=== PATIENT | female | born 1960 | race Two or more races ===

== ENCOUNTER 2023-10-29 15:55 | Emergency (ER) | payer BC, SELFPAY ==
--- NOTE | ~2023-10-29 | XR_ITS ---
XR lumbar spine 2-3V 10/29/2023 16:31 Indication: Low back pain for 3-4 days Procedure: 3 views lumbar spine Comparison: No prior studies for comparison. Findings: Vertebral body heights are maintained. No acute fracture or traumatic malalignment. There i s mild facet hypertrophy at L5-S1. There is mild disc narrowing at L5-S1. No evidence for spondylolis thesis. Pedicles intact. Sacral foramen are symmetric. Impression: 1: Mild lumbar spondylosis. Reviewed, dictated and finalized at location A. Impression: 1: Mild lumbar spondylosis.
--- NOTE | 2023-10-29 15:57 | ED.BACK ---
HPI - Back Pain/Injury General Chief Complaint: Back Pain/Injury Stated Complaint: Lower Back Pain Time Seen by Provider: 10/29/23 15:57 Source: patient Mode of arrival: ambulatory Limitations: no limitations History of Present Illness HPI Narrative: All is a 62-year-old female patient presenting to the clinic today with complaints of low back pain times 3-4 days. She reports no known injury. Denies any numbness or tingling going down her legs or any saddle anesthesia or loss of bowel or bladder. Thinks she may have strained her back and is having some spasms. Related Data Allergies Allergy/AdvReac Type Severity Reaction Status Date / Time No Known Allergies Allergy Verified 10/29/23 16:42 Review of Systems Review of Systems: Pertinent positives per HPI. Patient denies any fever, chills, rash, headache, visual changes, dizziness, cough, runny nose, sore throat, shortness of breath, chest pain, palpitations, nausea, vomiting, diarrhea, constipation, abdominal pain, or any urinary issues. PMFSH Comments At the time of my signature, I reviewed and agree with the nursing past medical, surgical, social, and family history. There is no relevant family history pertinent to the patient complaint. Exam Narrative: General: Well-developed, well nourished, in no apparent distress Head: Normocephalic, atraumatic. Cardio: Regular rate and rhythm, s1 and s2 normal, no murmur appreciated. Resp: Clear to auscultation bilaterally, no rhonchi, rales, wheezing or rubs. Musculoskeletal: No deformity,tender to palpation over the lumbar spine and paraspinous musculature, negative straight leg test, grossly normal range of motion, muscle strength strong and equal, peripheral pulse strong, no edema, no cyanosis, normal gait and station Course Course Emergency Course: Portions of this record may have been created with voice recognition software. Level of Care: Express Care Visit Vital Signs Vital signs: Vital signs reviewed MDM - Back Pain/Injury MDM Narrative Medical decision making narrative: At the time of visit patient is resting comfortably on the exam table. Patient appears to be nontoxic. Diagnostics: X-ray of the lumbar spine was negative for any sign of fracture or malalignment. Does show some mild spondylosis. Plan: I suspect patient has lumbar strain. Prescription for Flexeril and naproxen was sent to the pharmacy. Patient is requesting something for pain in the office today so Toradol 60 mg IM was given. Supportive measures were discussed with the patient and they voiced understanding discharge instructions and agrees to treatment plan. Return precautions reviewed Differential Diagnosis Differential diagnosis: Likely lumbar radiculopathy, sciatica and strain of lumbar region Imaging Data Radiologist's impression: ITS Impressions Lumbar Spine X-Ray 10/29/23 16:35 Impression: 1: Mild lumbar spondylosis. Discharge Plan Discharge Clinical Impression: Strain of lumbar region Qualifiers: Encounter type: initial encounter Qualified Code(s): S39.012A - Strain of muscle, fascia and tendon of lower back, initial encounter Patient Disposition: Home, Self-Care Condition: Stable Instructions: Antibiotic Form, Low Back Strain (ED) Additional Instructions: X-rays negative for any sign of fracture or malalignment. Does show mild spondylosis (degenerative disc disease) Take any prescription medication only as prescribed-cyclobenzaprine and naproxen Be mindful of sedation precautions given to you if taking a muscle relaxer. May use heat or ice to the affected area Consider massage or chiropractor adjustment if this was discussed with provider May use blue emu, lidocaine patches, or asper cream to affected area- do not apply heat or ice directly over cream- can cause burn. Complete appropriate back stretching exercises. Follow up with your PCP in 3-5 days if symptom pers
[2023-10-29 16:13] VITALS: BP 139/80; PULSE 102; RESP 16; TEMP 36.7; O2SAT 100
[2023-10-29] MEDS: KETOROLAC (*BKC) 60 MG/2 ML VIAL IM (16:49)
== END 2023-10-29 17:13 | disposition home or self-care (01) ==
PROVIDERS: Emergency Provider Nurse Practitioner Family
DX: S39.012A Strain of muscle, fascia and tendon of lower back, initial encounter (principal); X58.XXXA Exposure to other specified factors, initial encounter
CPT/HCPCS: 72100; 96372; 99213; G0463; J1885